=== PATIENT | female | born 1970 | race Caucasian/White ===

== ENCOUNTER 2020-10-03 15:24 | Outpatient (CLI) | payer BC, SELFPAY ==
--- NOTE | ~2020-10-03 | MM_ITS ---
EXAMINATION: MM screening [facility] BI w anish HISTORY: Screening mammogram TECHNIQUE: Craniocaudal and mediolateral oblique 3-D tomosynthesis images were obtained and synthetic 2-D images were generated. CAD analysis was submitted and interpreted. COMPARISON: 09/05/2019, 07/27/2018, 04/27/2017 BREAST PARENCHYMAL COMPOSITION: The breasts are heterogeneously dense, which may obscure small masses . FINDINGS: RIGHT BREAST: There is no evidence of suspicious mass, calcification, or architectural distortion to suggest malignancy. There has been no significant interval change. LEFT BREAST: There is low-density mass in the far posterior third of the slightly inner breast best a ppreciated 8 cm from the nipple on craniocaudal tomosynthesis image 14/86. IMPRESSION: 1. Left breast mass. 2. Additional mammographic views and possible breast ultrasound are recommended. BI-RADS Category 0: Incomplete: Needs additional imaging evaluation. Reviewed, dictated and finalized at location A. RVISOR TYPE DISK QUALITY CONTROL IMPRESSION: 1. Left breast mass. 2. Additional mammographic views and possible breast ultrasound are recommended . BI-RADS Category 0: Incomplete: Needs additional imaging evaluation.
== END 2020-10-03 15:25 | disposition home or self-care (01) ==
LOC: ANHIMG 15:27
DX: Z12.31 Encounter for screening mammogram for malignant neoplasm of breast (principal); R92.8 Other abnormal and inconclusive findings on diagnostic imaging of breast
CPT/HCPCS: 77063; 77067

== ENCOUNTER 2020-10-23 11:23 | Outpatient (CLI) | payer BC, SELFPAY ==
--- NOTE | ~2020-10-23 | MM_ITS ---
EXAMINATION: MM diagnostic mammo unilat LT HISTORY: Left breast mass on screening mammogram TECHNIQUE: Additional 3-D tomosynthesis images of the left breast were performed and synthetic 2-D im ages were generated. CAD analysis was submitted and interpreted. COMPARISON: 10/03/2020, 09/05/2019, 07/27/2018, 04/27/2017 FINDINGS: No persistent mass is identified with spot compression views of the left breast. There is n o suspicious calcification or architectural distortion. IMPRESSION: 1. No mammographic evidence of malignancy. 2. Recommend routine screening mammography in one year. BI-RADS Category 1: Negative Reviewed, dictated and finalized at location A. STOS BRAKE LINING FINISHER
== END 2020-10-23 11:24 | disposition home or self-care (01) ==
LOC: ANHIMG 11:28
DX: R92.8 Other abnormal and inconclusive findings on diagnostic imaging of breast (principal)
CPT/HCPCS: 77065

== ENCOUNTER 2021-11-27 14:30 | Outpatient (CLI) | payer BC, SELFPAY ==
--- NOTE | ~2021-11-27 | MM_ITS ---
EXAMINATION: MM screening [facility] BI w anish HISTORY: Screening mammogram TECHNIQUE: Craniocaudal and mediolateral oblique 3-D tomosynthesis images were obtained and synthetic 2-D images were generated. CAD analysis was submitted and interpreted. COMPARISON: 10/23/2020, 10/03/2020, 09/05/2019 BREAST PARENCHYMAL COMPOSITION: The breasts are heterogeneously dense, which may obscure small masses . FINDINGS: There is no evidence of suspicious mass, calcification, or architectural distortion to sugg est malignancy in either breast. There has been no suspicious interval change. IMPRESSION: 1. No mammographic evidence of malignancy. 2. Recommend routine screening mammography in one year. BI-RADS Category 1: Negative Reviewed, dictated and finalized at location A. INE ENGINEER
== END 2021-11-27 14:31 | disposition home or self-care (01) ==
LOC: ANHIMG 14:35
PROVIDERS: Visit Provider Family Medicine
DX: Z12.31 Encounter for screening mammogram for malignant neoplasm of breast (principal)
CPT/HCPCS: 77063; 77067

== ENCOUNTER 2022-12-20 12:27 | Outpatient (CLI) | payer BC, SELFPAY ==
--- NOTE | ~2022-12-20 | XR_ITS ---
EXAMINATION: XR hip RT 2V w AP pelvis DATE: 12/20/2022 14:11 INDICATION: Right hip pain. TECHNIQUE: An anteroposterior view of the pelvis and 2 views of right hip were obtained. COMPARISON: None. FINDINGS: Bone alignment is normal. No fracture. There is mild osteoarthritis of the hips. IMPRESSION: 1. Mild osteoarthritis of the hips. Reviewed, dictated and finalized at location A. T INSTALLER
== END 2022-12-20 12:28 | disposition home or self-care (01) ==
PROVIDERS: PCP Family Medicine; Visit Provider Family Medicine
DX: M25.551 Pain in right hip (principal); M16.0 Bilateral primary osteoarthritis of hip
CPT/HCPCS: 73502

== ENCOUNTER 2022-12-23 14:50 | Outpatient (CLI) | payer BC, SELFPAY ==
[2022-12-23 15:39] LABS: Appearance Urine Clear (Clear); Bilirubin Urine Negative (Negative); Blood Urine 3+ (Negative); Color Urine Light Yellow (Yellow); Glucose Urine UA 3+ (Negative); Ketones Urine Negative (Negative); Leukocyte Esterase Ur Trace LEU/UL (Negative); Nitrate Urine Positive (Negative); Protein Urine Negative (Negative); Specific Grav Ur 1.025 (1.010-1.020); Urobilinogen Urine 0.2 mg/dL (0.2-1.0)
[2022-12-23 16:09] LABS: Add Urine Microscopic? YES; RBC Urine >100 /hpf (0-2)
[2022-12-23 16:10] LABS: Bacteria Urine 2+ /hpf; Squamous Epithelial Cell Urine Few /hpf (Few)
== END 2022-12-23 14:51 | disposition home or self-care (01) ==
LOC: CHSLAB 14:52
PROVIDERS: PCP Family Medicine; Visit Provider Family Medicine
DX: N39.0 Urinary tract infection, site not specified (principal)
CPT/HCPCS: 81001; 87077; 87086; 87088; 87186

== ENCOUNTER 2023-01-07 10:30 | Outpatient (CLI) | payer BC, SELFPAY ==
[2023-01-07 10:40] LABS: Appearance Urine Slightly Cloudy (Clear); Bilirubin Urine Negative (Negative); Blood Urine Negative (Negative); Color Urine Light Yellow (Yellow); Glucose Urine UA Negative (Negative); Ketones Urine Trace (Negative); Leukocyte Esterase Ur 2+ LEU/UL (Negative); Nitrate Urine Negative (Negative); Protein Urine Negative (Negative); Specific Grav Ur 1.015 (1.010-1.020); pH Urine 6.5 (5.0-8.0)
[2023-01-07 10:45] LABS: Add Urine Microscopic? YES; RBC Urine None seen /hpf (0-2); Squamous Epithelial Cell Urine Few /hpf (Few); WBC Urine 16-20 /hpf (0-3)
[2023-01-07 10:46] LABS: Bacteria Urine Trace /hpf
== END 2023-01-07 10:31 | disposition home or self-care (01) ==
LOC: CHSLAB 10:32
PROVIDERS: PCP Family Medicine; Visit Provider Family Medicine
DX: R30.9 Painful micturition, unspecified (principal); R82.90 Unspecified abnormal findings in urine
CPT/HCPCS: 81001; 87077; 87086; 87088; 87186

== ENCOUNTER 2023-02-21 09:47 | Outpatient (CLI) | payer BC, SELFPAY ==
[2023-02-21 09:58] LABS: Appearance Urine Clear (Clear); Bilirubin Urine Negative (Negative); Blood Urine Negative (Negative); Color Urine Light Yellow (Yellow); Glucose Urine UA 3+ (Negative); Ketones Urine Trace (Negative); Leukocyte Esterase Ur 1+ (Negative); Nitrate Urine Negative (Negative); Protein Urine Negative (Negative); Specific Grav Ur 1.015 (1.010-1.020); pH Urine 6.5 (5.0-8.0)
[2023-02-21 10:06] LABS: Add Urine Microscopic? YES
[2023-02-21 10:07] LABS: Bacteria Urine Trace /hpf; RBC Urine None seen /hpf (0-2); Squamous Epithelial Cell Urine Few /hpf (Few)
== END 2023-02-21 09:48 | disposition home or self-care (01) ==
LOC: CHSLAB 09:49
PROVIDERS: PCP Family Medicine; Visit Provider Family Medicine
DX: N39.0 Urinary tract infection, site not specified (principal); R82.90 Unspecified abnormal findings in urine
CPT/HCPCS: 81001; 87086; 87088

== ENCOUNTER 2023-03-07 10:52 | Outpatient (CLI) | payer BC, SELFPAY ==
--- NOTE | ~2023-03-07 | CT_ITS ---
EXAMINATION: CT abdomen pelvis w con DATE: 03/07/2023 12:33 INDICATION: Right flank pain. TECHNIQUE: Computed tomography (CT) of the abdomen and pelvis was performed with 100 mL Omnipaque 350 intravenous contrast. Automated exposure control and iterative reconstruction technique were employe d. The dose-length product was 313.57 mGy-cm. COMPARISON: None. FINDINGS: The visualized portions of the lung bases demonstrate mild atelectasis. No pleural effusion . The heart size is normal. No pericardial effusion. The liver, gallbladder, spleen, pancreas, and ad renal glands are normal. There is cortical thinning of right kidney. There are cysts in left kidney m easuring up to 5 mm. There is a 4 mm stone in left kidney. The stomach is distended and filled with f ood. There are no dilated loops of bowel. The appendix is not visualized. There are no pathologically enlarged lymph nodes. There is no free intraperitoneal fluid. There is mild lumbar spondylosis. IMPRESSION: 1. No specific etiology for the patient's symptoms. Reviewed, dictated and finalized at location A.
[2023-03-07 12:11] LABS: Estimated Glomerular Filt Rate > 60
== END 2023-03-07 10:53 | disposition home or self-care (01) ==
PROVIDERS: PCP Family Medicine; Visit Provider Family Medicine
DX: R10.9 Unspecified abdominal pain (principal)
CPT/HCPCS: 74177; Q9967

== ENCOUNTER 2023-05-16 14:11 | Outpatient (CLI) | payer BC, SELFPAY ==
[2023-05-16 14:47] LABS: Appearance Urine Clear (Clear); Bilirubin Urine Negative (Negative); Blood Urine Negative (Negative); Color Urine Yellow (Yellow); Glucose Urine UA Trace (Negative); Ketones Urine Negative (Negative); Leukocyte Esterase Ur Negative LEU/UL (Negative); Nitrate Urine Negative (Negative); Protein Urine Negative (Negative); Specific Grav Ur >= 1.030 (1.010-1.020)
[2023-05-16 15:05] LABS: Add Urine Microscopic? NO
== END 2023-05-16 14:12 | disposition home or self-care (01) ==
LOC: CHSLAB 14:13
PROVIDERS: PCP Family Medicine; Visit Provider Family Medicine
DX: N39.0 Urinary tract infection, site not specified (principal)
CPT/HCPCS: 81003

== ENCOUNTER 2023-06-15 07:28 | Outpatient (CLI) | payer BC, SELFPAY ==
--- NOTE | ~2023-06-15 | MM_ITS ---
EXAMINATION: MM screening [facility] BI w anish HISTORY: Screening mammogram TECHNIQUE: Craniocaudal and mediolateral oblique 3-D tomosynthesis images were obtained and synthetic 2-D images were generated. CAD analysis was submitted and interpreted. COMPARISON: 11/27/2021, 10/03/2020 BREAST PARENCHYMAL COMPOSITION:The breasts are extremely dense, which lowers the sensitivity of mammo graphy. FINDINGS: No suspicious mass, calcification, or architectural distortion are identified in either venancio ast to suggest malignancy. There has been no suspicious interval change. IMPRESSION: No mammographic evidence of malignancy. Recommend routine screening mammography in one year. BI-RADS Category 1: Negative Reviewed, dictated and finalized at location M.
== END 2023-06-15 07:29 | disposition home or self-care (01) ==
LOC: CHSIMG 07:29
PROVIDERS: PCP Family Medicine; Visit Provider Obstetrics & Gynecology
DX: Z12.31 Encounter for screening mammogram for malignant neoplasm of breast (principal)
CPT/HCPCS: 77063; 77067

== ENCOUNTER 2023-07-11 16:13 | Outpatient (RCR) | payer BC, SELFPAY ==
--- NOTE | 2023-07-11 17:01 | OPREHPOC ---
Outpatient Therapy Plan of Care This is a Multidisciplinary Plan of Care that may contain components documented by all disciplines (PT, OT, and ST.) PT Problem 1 PT Problem #1 Knowledge Deficit PT Goal 1 Goal Patient to demonstrate independence with HEP Target Visit 5 PT Problem 2 PT Problem #2 Pain PT Goal 1 Goal 1. Patient to report highest pain at 2/10 2. Patient to report ability to sleep through the night with no disturbance due to pain Target Visit 10 PT Problem 3 PT Problem #3 Impaired Strength PT Goal 1 Goal Patient to demonstrate 5/5 strength of R hip to return to stair navigation at PLOF Target Visit 10 PT Problem 4 PT Problem #4 Impaired Flexibility PT Goal 1 Goal Patient to demonstrate no restriction of the R hip flexor to return to sitting for prolonged periods of time Target Visit 10
--- NOTE | 2023-07-11 17:01 | PTOPEVAL1 ---
Assessment and note entered by Kaylynn Toney DPT Evaluation Information Assessment Status Evaluation Diagnosis R hip pain, R leg pain Onset 06/22/23 Subjective Information Patient reports in July of 2022 she had a is Patient reports pain is at the groin and wraps to the hip joint. Patient has difficulty with stairs, running, walking and sitting for prolonged periods. She has been taking meloxicam and has noticed pain decreasing with taking. Reported Pain Level Pain Score 3: Self Report Assessment PT Clinical Summary Patient is a 52 year old female who presents to PT with R sided hip and groin pain. Patient demonstrates decreased R hip flexor length, decreased R hip strength and tenderness to the R piriformis and glute impairing her ability to sit for long periods of time, navigate stairs and complete house hold tasks. Patient would benefit from skilled PT to address impairments and return to PLOF. Plan of Care Interventions Electrical Stimulation,Gait Training,Hot Pack/Cold Pack,Manual Therapy,Mechanical Traction,Neuro Re- education,Patient/Caregiver Educati,Therapeutic Activities,Therapeutic Exercise PT Services Indicated Yes Treatment Frequency and 2x weekly for 10 visits Duration These treatments will address the objective and functional deficits as defined above. The patient will be advanced safely and appropriately in order for the patient to progress towards his/her prior level of function. Additional exercises will be introduced and as well as a comprehensive home exercise program upon discharge, if needed, ?to ensure carryover of functional gains achieved in the clinic. This treatment plan has been reviewed and agreement upon by the patient.
--- NOTE | 2023-10-13 17:18 | PCPTNOTE ---
patient discharged due completion of current program
== END 2023-08-11 23:59 | disposition home or self-care (01) ==
LOC: CHSPT 16:13
PROVIDERS: Visit Provider Physical Medicine & Rehabilitation
DX: M25.551 Pain in right hip (principal); G89.29 Other chronic pain; M25.851 Other specified joint disorders, right hip
CPT/HCPCS: 97014; 97110; 97140; 97161; G0283

== ENCOUNTER 2023-10-05 14:19 | Outpatient (CLI) | payer BC, SELFPAY ==
--- NOTE | ~2023-10-05 | XR_ITS ---
EXAMINATION: XR hand BI arthritis min 3V DATE: 10/05/2023 14:44 INDICATION: Bilateral hand pain. TECHNIQUE: 4 views of right hand and 4 views of left hand on a total of 7 radiographs were obtained. COMPARISON: None. FINDINGS: RIGHT HAND: Bone alignment is normal. No fracture. There is mild osteoarthritis of fifth proximal int erphalangeal joint. LEFT HAND: Bone alignment is normal. No fracture. There is mild osteoarthritis of first carpometacarp al joint and first interphalangeal joint. IMPRESSION: 1. Mild polyarticular osteoarthritis. Reviewed, dictated and finalized at location E. [employer] TRAINING MANAGER
== END 2023-10-05 14:20 | disposition home or self-care (01) ==
LOC: CHSIMG 14:22
PROVIDERS: PCP Family Medicine; Visit Provider Family Medicine
DX: M19.042 Primary osteoarthritis, left hand (principal); M19.041 Primary osteoarthritis, right hand
CPT/HCPCS: 73130

== ENCOUNTER 2023-10-07 12:17 | Outpatient (CLI) | payer BC, SELFPAY ==
--- NOTE | ~2023-10-07 | XR_ITS ---
XR wrist LT min 3V DATE: 10/07/2023 14:21 INDICATION: Chronic pain and swelling of left wrist TECHNIQUE: 4 views COMPARISON: None FINDINGS: No fracture or dislocation, periosteal reaction or bone destruction. No erosive change or c hondrocalcinosis. Joint spaces appear well preserved. IMPRESSION: Negative Reviewed, dictated and finalized at location A. [employer] IMPRESSION: Negative
--- NOTE | ~2023-10-07 | XR_ITS ---
XR wrist RT min 3V DATE: 10/07/2023 14:21 INDICATION: Chronic pain and swelling of right wrist TECHNIQUE: 4 views COMPARISON: None FINDINGS: No fracture or dislocation, periosteal reaction or bone destruction, erosive change or marilyn drocalcinosis. Joint spaces are well preserved. IMPRESSION: Negative Reviewed, dictated and finalized at location A. ATION COORDINATOR IMPRESSION: Negative
== END 2023-10-07 12:18 | disposition home or self-care (01) ==
LOC: CHSLAB 12:20
PROVIDERS: PCP Family Medicine; Visit Provider Family Medicine
DX: M25.532 Pain in left wrist (principal); M25.531 Pain in right wrist
CPT/HCPCS: 73110

== ENCOUNTER 2023-12-28 10:39 | Outpatient (CLI) | payer BC, SELFPAY ==
--- NOTE | ~2023-12-28 | XR_ITS ---
Left Shoulder Technique: AP and scapular Y views were obtained. Clinical History: Pain Findings: No fracture or dislocation is seen. Osseous alignment is anatomic. The glenohumeral and acr omioclavicular joint spaces are preserved. Soft tissues are unremarkable. Impression: Unremarkable left shoulder radiographs. Reviewed, dictated and finalized at [facility]. Impression: Unremarkable left shoulder radiographs.
== END 2023-12-28 10:40 | disposition home or self-care (01) ==
LOC: CHSIMG 10:41
PROVIDERS: PCP Family Medicine; Visit Provider Family Medicine
DX: M25.512 Pain in left shoulder (principal)
CPT/HCPCS: 73030

== ENCOUNTER 2024-03-02 11:11 | Outpatient (RCR) | payer BC, SELFPAY ==
--- NOTE | 2024-03-02 11:57 | OPREHPOC ---
Outpatient Therapy Plan of Care This is a Multidisciplinary Plan of Care that may contain components documented by all disciplines (PT, OT, and ST.) PT Problem 1 PT Problem #1 Knowledge Deficit PT Goal 1 Goal 1. patient to display knowledge of home valentina maneuver and sleeping position. Target Visit 1 Progress Met
--- NOTE | 2024-03-02 11:57 | PTOPEVDC ---
Assessment and note entered by JT File, PT Thank you for referring Zayda James to [facility].? An evaluation has been completed. No further treatment is needed. Evaluation Information Assessment Status Evaluation Diagnosis BPPV R ear Onset 02/22/24 Subjective Information patient reports she has been having vertigo symptoms off and on for the past 9 days. she reports she gets it the most when she lays down. she reports the room will spin and last for about 30-45 seconds. she reports when she is up she does have a bit of light headedness. she reports she has had vertigo type symptoms in the past, but reports they were more related to migraines and had other symptoms that correlated with migraines. she reports her symptoms now are different. she reports she was prescribed meclizine. she reports she took it last night, but reports she has not been consistent with taking it. she reports her symptoms are worse to the R side. Reported Pain Level Pain Score 3: Self Report Assessment PT Clinical Summary mrs. james presents to skilled PT for evaluation and treatment of BPPV symptoms on the R side. she describes symptoms that are indicative of BPPV. however, today, she has more lightheadedness and no nystagmus of the eyes. she was educated in the home Melinda and sleeping position protocol. she will perform this at home, and follow up as needed . she was educated to return to the MD if her symptoms persist longer than the end of next week. Plan of Care Interventions Patient/Caregiver Educati,Therapeutic Activities, Therapeutic Exercise PT Services Indicated No Treatment Frequency and DC to independent HEP. follow up with MD in 1 week Duration if symptoms persist.
== END 2024-03-02 14:00 | disposition home or self-care (01) ==
LOC: CHSPT 11:11
PROVIDERS: Visit Provider Family Medicine
DX: H81.11 Benign paroxysmal vertigo, right ear (principal)
CPT/HCPCS: 95992; 97161

== ENCOUNTER 2024-09-18 12:49 | Outpatient (CLI) | payer BC, SELFPAY ==
--- NOTE | ~2024-09-18 | CT_ITS ---
CT Scan of the Chest without Contrast: Clinical Indication: Lung cancer screening, nicotine dependence Technique: Contiguous sections were acquired throughout the chest without intravenous contrast. Dose reduction technique was used on this scan by utilizing automated exposure control and iterative recon struction technique. The dose-length product (DLP) was 70.25 mGy-cm. Findings: There is no evidence of any significant mediastinal, hilar or axillary lymphadenopathy. The mediastin al soft tissues appear normal. There is no evidence of pleural or pericardial effusion. The lungs are clear. No pulmonary nodules or infiltrates are noted. Images through the upper abdomen reveal no abnormalities. Impression: Lung RADS 1: Negative. 12 month follow-up screening CT advised. Reviewed, dictated and finalized at location . LRY BENCH WORKER Impression: Lung RADS 1: Negative. 12 month follow-up screening CT advised.
== END 2024-09-18 12:50 | disposition home or self-care (01) ==
PROVIDERS: PCP Family Medicine; Visit Provider Family Medicine
DX: Z12.2 Encounter for screening for malignant neoplasm of respiratory organs (principal); Z87.891 Personal history of nicotine dependence
CPT/HCPCS: 71271

== ENCOUNTER 2025-09-18 08:03 | Outpatient (CLI) | payer BC, SELFPAY ==
--- OUTSIDE RECORDS SUMMARY | 2016-01-27 04:00 | XMS_ITS | Continuity of Care Document ---
Author Organization [facility] Address [address] [place] [address] Phone Care Team Providers Care Couture Dressmaker Name Role Phone Marie Warren Unavailable Unavailable Allergies, Adverse Reactions, Alerts Substance Reaction Status Criticality clarithromycin GI Problems Active No Informatio n Medications Medication Instructions Dosage Effective Dates (start - stop) Status Comments Dymista 137 mcg-50 mcg/spray nasal spray 1 spray by intranasal route 2 times every day in each nostril - Active MEMBER: MARGARET, GROUP: [id number], RxBIN: [id number], Topamax 25 mg Tab take 4 Tablet (100MG) by oral route every day in the morning and evening 100 MG - Active HUMALOG (unknown strength) Not Available - Active spironolactone 50 mg Tab take 1 tablet (50MG) by oral route every 12 hours 50 MG - Active insulin pump cartridge SubQ - Active Advance Directives Directive Yes / No Effective Date File Name No Information Encounters Encounter Description Practice Location Reason(s) For Visit Diagnoses Date Provider Providers Copied on Encounter [facility], [address], [place], [place], [id number] , [place] tel: [phone] [facility] Other allergic rhinitis 6 Jose Salazar . [address] [facility], [address] [address], [place], [place], [id number] , [place]. tel: [phone] Referring Provider: Marvin Louis, [address] [place] [address], [address] . tel:[phone] [facility], [address], [place], [place], [id number] , tel: [phone] [facility] Other allergic rhinitis 0 6 Heriberto Wong. [address] [place] [address], [id number] , . tel: [phone] Referring Provider: Marvin Louis, [address] [place] [address], [address] . tel:[phone] [facility], [address], [place], [place], [id number] , [place] tel: [phone] [facility] Other allergic rhinitis 6 Heriberto Wong. [address] [place] [address], [id number] , . tel: [phone] Referring Provider: Marvin Louis, [address] [place] [address], [address] . tel:[phone] [facility], [address], [place], [place], [id number] , tel: [phone] [facility] Other allergic rhinitis 6 Jose Salazar . [address] [place] [address], [id number] , . tel: [phone] Referring Provider: Marvin Louis, [address] [place] [address], [address] . tel:[phone] [facility], [address], [place], [address] , [place] tel: [phone] [facility] Other allergic rhinitis 5 Jose Salazar . [address] [place] [address], [id number] , . tel: [phone] Referring Provider: Marvin Louis, [address] [place] [address], [address] . tel:[phone] [facility], [address] [place] [address], [id number] , tel: [phone] [facility] Other allergic rhinitis Erwinabraham SextonMarie . [address] [place] [address], [id number] , . tel: [phone] Referring Provider: Marvin Louis, [address] [place] [address], [address] . tel:[phone] [facility], [id number] [place] [address], [id number] , tel: [phone] [facility] Other allergic rhinitis 5 Heriberto Wong. [address] [place] [address], [id number] , . tel: [phone] Referring Provider: Madan rosario, [address] [place] [address] [address] , [place], [address]. tel:[phone] [facility], [address] [place] [address], [id number] , tel: [phone] [facility] Allergic rhinitis due to other allergen Jun- Erwinabraham SextonMarie . [address] [place] [address], [id number] , . tel: [phone] Referring Provider: Marvin Louis, [address] [place] [address], [address] . tel:[phone] [facility], [address] [place] [address], [id number] , tel: [phone] [facility] Allergic rhinitis due to other allergen Aug- 0 5 Heriberto Wong. [address] [place] [address], [id number] , . tel: [phone] Referring Provider: Marvin Louis, [address] [place] [address], [address] . tel:[phone] [facility], [address] [place] [address], [id number] , tel: [phone] [facility] Allergic rhinitis due to other allergen Benjamin-2 3- 5 Heriberto Wong. [address] [place] [address], [id number] , . tel: [phone] Referring Provider: Marvin Louis, [address] [place] [address], [address] . tel:[phone] [facility], [address], [place], [place], [address] , tel: [phone] [facility] Allergic rhinitis due to other allergen Maximiliano-1 - 5 Heriberto Wong. [address] [place] [address], [id number] , . tel: [phone] Referring Provider: Marvin Louis, [address] [place] [address], [address] . tel:[phone] [facility], [address], [place], [place], [address] , tel: [phone] [facility] Allergic rhinitis due to other allergen May-1 - 5 Jose Salazar . [address] [place] [address], [id number] , . tel: [phone] Referring Provider: Marvin Louis, [address] [place] [address], [address] . tel:[phone] [facility], [address], [place], [place], [address] , tel: [phone] [facility] Allergic rhinitis due to other allergen Mar-2 6- 5 Heriberto Wong. [address] [place] [address], [id number] , . tel: [phone] Referring Provider: Marvin Louis, [address] [place] [address], [address] . tel:[phone] [facility], [address], [place], [place], [address] , tel: [phone] [facility] Allergic rhinitis due to other allergen Feb-2 5-201 5 Shine Amrie . [address] [place] [address], [id number] , . tel:[phone] Referring Provider: Marvin Louis, [address] [place] [address], [address] . tel:[phone] [facility], [address], [place], [place], [address] , [place] tel: [phone] [facility] Allergic rhinitis due to other allergen German-2 1-201 5 Jose Sextonine . [address] [place] [address], [id number] , [place]. tel: [phone] Referring Provider: Marvin Louis, [address] [place] [address], [address] . tel:[phone] [facility], [address], [place], [place], [id number] , [place] tel: [phone] [facility] Allergic rhinitis due to other allergen Dec-2 3-201 4 Jose Sextonine . [address] [place] [address], [id number] , [place]. tel:[phone] Referring Provider: Marvin Louis, [address] [place] [address], [address] . tel:[phone] [facility], [address], [place], [place], [address] , [place] tel: [phone] [facility] Allergic rhinitis due to other allergen Oct-3 0-201 4 Heriberto Wong. [address] [place] [address], [id number] , [place]. tel: [phone] Referring Provider: Marvin Louis, [address] [place] [address], [address] . tel:[phone] [facility], [address], [place], [place], [id number] , [place] tel: [phone] [facility] Allergic rhinitis due to other allergen Oct-1 6-201 4 Heriberto Wong. [address] [place] [address], [place], [id number] , . tel: [phone] Referring Provider: Madan rosario, [address] [place] [address], [place], [address]. tel:[phone] [facility], [address], [place], [place], [address] , tel: [phone] [facility] Allergic rhinitis due to other allergen Oct-0 2-201 4 Heriberto Wong. [address] [place] [address], [id number] , . tel: [phone] Referring Provider: Marvin Louis, [address] [place] [address], [address] . tel:[phone] [facility], [address], [place], [address] , tel: [phone] [facility] Allergic rhinitis due to other allergen Sep-0 4-201 4 Heriberto Wong. [address] [place] [address], [id number] , . tel: [phone] Referring Provider: Marvin Louis, [address] [place] [address], [address] . tel:[phone] [facility], [address], [place], [address] , tel: [phone] [facility] Allergic rhinitis due to other allergen Aug-0 7-201 4 Heriberto Wong. [address] [place] [address], [id number] , [place]. tel: [phone] Referring Provider: Marvin Louis, [address] [place] [address], [address] . tel:[phone] [facility], [address] [place] [address], [id number] , tel: [phone] [facility] Allergic rhinitis due to other allergen Benjamin-0 8-201 4 Heriberto Wong. [address] [place] [address], [id number] , . tel: [phone] Referring Provider: Marvin Louis, [address] [place] [address], [address] . tel:[phone] [facility], [address], [place], [place], [address] , tel: [phone] [facility] Allergic rhinitis due to other allergen Maximiliano-1 2-201 4 Heriberto Wong. [address] [place] [address], [address], [id number] , . tel: [phone] Referring Provider: Marvin Louis, [address] [place] [address], [address] . tel:[phone] [facility], [address], [place], [place], [address] , tel: [phone] [facility] Allergic rhinitis due to other allergen May-1 5-201 4 Heriberto Wong. [address] [place] [address], [id number] , . tel: [phone] Referring Provider: Marvin Louis, [address] [place] [address], [address] . tel:[phone] [facility], [address], [place], [place], [address] , tel: [phone] [facility] Allergic rhinitis due to other allergen Apr-1 6-201 4 Heriberto Wong. [address] [place] [address], [address], [id number] , . tel: [phone] Referring Provider: Marvin Louis, [address] [place] [address], [address] . tel:[phone] [facility], [address], [place], [place], [address] , tel: [phone] [facility] Allergic rhinitis due to other allergen Mar-2 0-201 4 Heriberto Wong. [address] [place] [address], [address], [id number] , . tel: [phone] Referring Provider: Marvin Louis, [address] [place] [address], [address] . tel:[phone] [facility], [address], [place], [place], [address] , tel: [phone] [facility] Allergic rhinitis due to other allergen Feb-2 0 4 Heriberto Wong. [address] [place] [address], [id number] , . tel: [phone] Referring Provider: Marvin Louis, [address] [place] [address], [address] . tel:[phone] [facility], [address], [place], [place], [address] , [place] tel: [phone] [facility] Allergic rhinitis due to other allergen Oct- 4 Heriberto Wong. [address] [place] [address], [id number] , . tel: [phone] Referring Provider: Marvin Louis, [address] [place] [address], [address] [place] [address] . tel:[phone] [facility], [address], [place], [place], [address] , tel: [phone] [facility] Allergic rhinitis due to other allergen Sep- 3 Heriberto Wong. [address] [place] [address], [id number] , . tel: [phone] Referring Provider: Marvin Louis, [address] [place] [address], [address] [place] [address] . tel:[phone] [facility], [address], [place], [place], [address] , [place] tel: [phone] [facility] Allergic rhinitis due to other allergen Jul- 3 Heriberto Wong. [address] [place] [address], [id number] , . tel: [phone] Referring Provider: Madan rosario, [address] [place] [address] , [place], [address]. tel:[phone] [facility], [address], [place], [address] , tel: [phone] [facility] Allergic rhinitis due to other allergen Oct-2 2 Heriberto Wong. [address] [place] [address], [id number] , . tel: [phone] Referring Provider: Madan rosario, [address], [place], [address]. tel:[phone] [facility], [address], [place], [place], [address] , tel: [phone] [facility] Allergic rhinitis due to other allergen German-2 2 Heriberto Wong. [address] [place] [address], [id number] , . tel: [phone] Referring Provider: Madan rosario, [address], [place], [address]. tel:[phone] [facility], [address], [place], [place], [address] , tel: [phone] [facility] No Information Aug-0 1 Heriberto Wong. [address] [place] [address], [id number] , . tel: [phone] [facility], [address], [place], [place], [address] , tel: [phone] [facility] Allergic rhinitis due to other allergen Maximiliano-1 1 Heriberto Wong. [address] [place] [address], [id number] , . tel: [phone] Referring Provider: Marvin Louis, [address] [place] [address], [address] . tel:[phone] [facility], [address], [place], [place], [address] , tel: [phone] [facility] Allergic rhinitis due to other allergen Maximiliano-0 1 Heriberto Wong. [address] [place] [address], [id number] , . tel: [phone] Referring Provider: Marvin Louis, [address] [place] [address], [address] . tel:[phone] [facility] [address], [place], [address] , tel: [phone] [facility] Allergic rhinitis due to other allergen Maximiliano-0 1 Heriberto Wong. [address] [place] [address], [address], [id number] , . tel: [phone] Referring Provider: Marvin Louis, [address] [place] [address], [address] . tel:[phone] [facility] [address], [place], [place], [address] , tel: [phone] [facility] Allergic rhinitis due to other allergen February-2 1 Heriberto Wong. [address] [place] [address], [id number] , . tel: [phone] Referring Provider: Marvin Louis, [address] [place] [address], [address] . tel:[phone] [facility] [address], [place], [place], [address] , tel: [phone] [facility] Allergic rhinitis due to other allergen February-1 1 Heriberto Wong. [address] [place] [address], [id number] , . tel: [phone] Referring Provider: Marvin Louis, [address] [place] [address], [address] . tel:[phone] [facility] [address] [place] [address], [id number] , tel: [phone] [facility] Allergic rhinitis due to other allergen February-1 1 Heriberto Wong. [address] [place] [address], [id number] , . tel: [phone] Referring Provider: Madan rosario [address], [place], [address]. tel:[phone] [facility], [address], [place], [place], [address] , tel: [phone] [facility] Allergic rhinitis due to other allergenUnspecified sinusitis (chronic) [address] [place] [address], [id number] , . tel: [phone] Referring Provider: Marvin Louis, [address] [place] [address], [address] . tel:[phone] [facility], [address], [place], [place], [address] , tel: [phone] [facility] Allergic rhinitis due to other allergenTobacco use disorderUnspecified sinusitis (chronic)Other and unspecified chronic thyroiditisCommon migraine with intractable migraine, so statedDM Type 1, ControlledTobacco use disorder 1 Heriberto Wong. [address] [place] [address], [id number] , . tel: [phone] Referring Provider: Madan rosario, [address], [address]. tel:[phone] Family History Family Member Type Diagnosis Age At Onset No Information Payers Payer name Insurance type Covered constitution party ID Authorjaya tiwilliams(s) [facility] [id number] Social History Type Description Quantity Date Captured Comments Alcohol Use Details Unknown Caffeine Use Details Unknown Tobacco Use Status Smoking Status Current every day smoker 2015 Sex Female Vital Signs Date / Time: Height Weight BMI Pulse Rate Blood Pressure Temperature Respiratory Rate Body Surface Area Head Circumference Head Circ. Percentile Wt./Salo. Percentile BMI percentile Pulse Ox Inhaled Ox 11:46 AM 61.00 in 52.617 kg (116.00 lbs) 21.9 2 kg/m eter (2) 81 /min 87/56 mm[Hg] Chief Complaint And Reason For Visit No Information Reason For Referral Reason For Referral No Information History Of Present Illness Encounter Date Complaint History Of Prese nt Illness No Information Functional Status Date Functional Assessmen t No Information Medications Administered Medication Instructions Dosage Effective Dates (start - stop) Status Comments No Drug Therapy Prescribed Instructions Date Instruction Additional Infor mation No Information Assessments Type Assessment Date No Information Patient Care Teams Name Effective Dates (start - stop) Status Members No Information
--- NOTE | ~2025-09-18 | CT_ITS ---
EXAMINATION:CT lung screening DATE: 09/18/2025 08:21 INDICATION: Personal history of nicotine dependence. TECHNIQUE: Computed tomography (CT) of the chest was performed without intravenous contrast. Automated exposure control and iterative reconstruction technique were employed. The dose-length product (DLP) was 60.00 mGy-cm. COMPARISON: Chest CT 09/18/2024 FINDINGS: There is mild emphysema. There is a 3 mm nodule in right upper lobe. There is mild atelectasis bilaterally. No pleural effusion. The heart size is normal. There are coronary artery calcifications. No pericardial effusion. There is mild thoracic spondylosis. IMPRESSION: 1. Lung-RADS category 2: Benign appearance or behavior. Continue annual screening with noncontrast low-dose chest CT in 12 months. Reviewed, dictated and finalized at location E. BUILDER HELPER IMPRESSION: 1. Lung-RADS category 2: Benign appearance or behavior. Continue annual screeni ng with noncontrast low-dose chest CT in 12 months.
--- OUTSIDE RECORDS SUMMARY | 2025-09-18 08:14 | XMS_ITS | Clinical Summary ---
Author Organization [facility] Care Team Providers Care Craps Manager Name Role Phone Unavailable Primary Care Provider Unavailabl e Social History Tobacco Use Types Packs/Day Years Used Date Smoking Tobacco: Never Assessed Comments Unknown Sex and Gender Information Value Date Recorded Sex Assigned at Not on file Legal Sex Female 10:41 AM CDT Gender Identity Not on file Sexual Orientation Not on file Plan of Treatment Health Maintenance Due Date Last Done Comments Hepatitis C Virus (HCV) Screening 1972 TdaP Immunization 1972 Hepatitis B Immunization (1 of 3 - 19+ 3-dose series) 1991 Pap Smear 1993 Cervical Cancer Screening (CCS) 2002 HPV/Cotest 2002 Cologuard 2017 Colonoscopy 2017 Colorectal Cancer Screening 2017 Immunochemical Fecal Occult Blood 2017 Pneumococcal Immunization (5 0+ years) (1 of 1 - PCV) 2022 Zoster Immunization (1 of 2) 2022 Influenza Immunization (#1) 06/17/2025/0 04/2020, 07/15/2019, 07/29/2017 SARS-COV-2 Immunization ( season) 2025 Respiratory Syncytial Virus (RSV) Immunization (Adult) (1 - 1-dose 75+ series) 2047 Human Papillomavirus (HPV) Immunization Aged Out No longer eligible b ased on patient's age to complete this topic Meningococcal Immunization (ACWY) Aged Out No longer eligible b ased on patient's age to complete this topic Rotavirus Immunization Aged Out No lo nger eligible based on patient's age to complete this topic
--- OUTSIDE RECORDS SUMMARY | 2025-09-18 08:14 | XMS_ITS | Clinical Summary ---
Author Organization [facility] Address [address] [place] [id number] Care Team Providers Care Switchboard Operator Supervisor Name Role Phone Madan Knowles MD Primary Care Provider [phone] [phone] Allergies Active Allergy Reactions Criticality Noted Date Comments Azithromycin Nausea only Low 06/27/2022 Cortisone Other (See comments) Medium 08/05/2025 cortisone Medications insulin NPH (HumuLIN N, NovoLIN N) 100 unit/mL vial for injection daily 7 Active blood glucose diagnostic (OneTouch Verio test strips) stripIndications: Type 1 diabetes mellitus with complication (HCC) Test 2 - 3X daily as needed 200 each 3 1 Active lancets (onetouch ultrasoft) miscIndications:T ype 1 diabetes mellitus with complication (HCC) Use 2 - 3 per day prn 200 each 3 1 Active insulin syringe-needle U-100 (BD Insulin Syringe Ultra-Fine) 0.5 mL 31 gauge x 5/16 syringeIndication s:Type 1 diabetes mellitus without complication 1 each by other route 4 (four) times a day 100 each 1 2 Active spironolactone (ALDACTONE) 100 mg tablet Take 1 tablet (100 mg total) by mouth daily 2 Active famotidine (PEPCID) 40 mg tablet Take 1 tablet (40 mg total) by mouth nightly Active testosterone 100 mg pellet by implant route Active estradioL 15 mg pellet by implant route Active Dexcom G7 Sensor deviceIndications :Type 1 diabetes mellitus without complication,Insu gege pump in place Change every 10 days 9 each 3 5 Active insulin lispro (HumaLOG) 100 unit/mL vial for injectionIndicati ons:Type 1 diabetes mellitus with complication (HCC),Insulin pump in place Inject 55 Units under the skin daily Via pump 50 mL 1 5 05/31/20 26 Active Active Problems Problem Noted Date Diagnosed Date Other chest pain 01/29/2020 Assessment & Plan (01/29/2020 1:52 PM CDT): Woke her up from sleep 4 months ago. Has not had recurrence. No symptoms with exertion except she has low exercise tolerance. She does have increased CV risk due to diabetes, smoking history. She will monitor for further symptoms and let us know. ER precautions given. Intractable migraine without aura 06/10/2018 Other and unspecified chronic thyroiditis 2017 Tobacco use disorder 06/10/2018 Assessment & Plan (01/29/2020 1:30 PM CDT): precontemplative stage. She reports prior attempts which resulted in weight gain due to increased eating. Discussed risks including CV and VTE risk given concurrent use of hormonal therapy. Chronic sinusitis 06/10/2018 Lipid disorder 06/07/2018 Assessment & Plan (01/30/2019 10:03 PM CDT): LDL remains elevated at 129. Not interested in starting lipids at this time. Will recheck Lipid panel today. Counseled to quit smoking to reduce ASCVD risk. Assessment & Plan (09/12/2018 12:21 PM COMPUTER OPERATIONS TECHNICIAN): LDL remains elevated at 129. Current 10 year ASCVD risk based on pooled cohort equation is 2.6%. Assessment & Plan (06/07/2018 11:56 AM CDT): Has had elevated LDL to 110 in the past. At that time, she decided to hold on starting statin and monitor closely. Will recheck lipid panel today. Insulin pump titration 06/07/2018 Assessment & Plan (09/12/2019 6:21 PM COMPUTER OPERATIONS TECHNICIAN): Higher basal during the day, also changed carb ratio to 1:10. Pt is active on Dexcom Clarity, so changes can be followed if necessary. Assessment & Plan (06/07/2018 11:57 AM CDT): Pump downloaded and reviewed. See plan as in type 1 diabetes. Plan for change to tandem pump with dexcom sensor. Type 1 diabetes mellitus without complication Assessment & Plan (01/29/2020 1:27 PM CDT): Diabetes is not controlled, Review of CGM shows pattern of hyperglycemia throughout most of day with largest spikes following lunch. She does find that her BG is dropping during morning and is usually in 70-80s before lunch. Recommend decreasing basal rate in morning and increasing for rest of the day. Would also tighten carb ratio. See changes below. She will continue to use the Dexcom CGM and Tandem pump. Basal MN to 8A 0.6 >0.65 8A to 12P0.6 > 0.55 12P to MN 0.6>0.65 Carb ratio MN to MN 1:12 > 1:10 Sensitivity MN to 8A 50 8A to 10P 45 10P to MN 50 BG target 110-115 mg/dl. IOB 4 hrs. Labs will be done at the next visit. Assessment & Plan (09/12/2019 6:24 PM COMPUTER OPERATIONS TECHNICIAN): Glucose control is pretty good, but could be smoothed out a bit. I have made adjustments to her pump settings, starting daytime higher basal at 0500 until 2200; also changed carb ratio to 1:10 from 1:12. She will continue to use the Dexcom CGM and Tandem pump. Labs will be done at the next visit. Assessment & Plan (01/30/2019 10:01 PM CDT): Diabetes is stable with A1c of 7.5%. She continues to do well with the combination of insulin pump and continuous glucose monitor. She likes the dexcom and t-slim combination. She had 0 % time below target. Using basal IQ with predictive low suspend. Over last 2 weeks delivery was suspended for 11 % of the time to avoid lows. Will obtain Lipid panel, CMP, microalbuminuria. Assessment & Plan (09/12/2018 1:33 PM COMPUTER OPERATIONS TECHNICIAN): Well controlled currently, a1c at 7.2% today. She continues to do well with the combination of insulin pump and continuous glucose monitor Just switched to tandem T-slim X2 pump today with predictive suspend (Basal IQ technology), continue -midnight basal rate lowered to .5u/hr due to lows. ICR at noon increased to 1:10 -continue dexcom G6 Microalbumin/creat negative -eye exam up to date Assessment & Plan (06/07/2018 11:53 AM CDT): Diabetes is stable with A1c of 7.1%. She continues to do well with the combination of insulin pump and continuous glucose monitor. We had a long discussion about replacement pump options as she is now out of warranty. She wishes to continue with the dexcom sensors and we discussed that the tandem pump would communicate with this. We will proceed with the tandem pump. She is due for bloodwork today: cbc, cmp, lipids, microalbumin ordered today. Hyperthyroidism 01/07/2015 Assessment & Plan (01/29/2020 1:28 PM CDT): Clinically euthyroid. TSH normal in 02/2019. Can check labs at next visit Assessment & Plan (09/12/2019 6:22 PM COMPUTER OPERATIONS TECHNICIAN): Recheck thyroid labs at the next visit. TSH has been stable off methimazole. Assessment & Plan (01/30/2019 9:58 PM CDT): She has been off methimazole for > 1 year. Remains clinically euthyroid. Assessment & Plan (09/12/2018 1:31 PM COMPUTER OPERATIONS TECHNICIAN): She has been off methimazole for > 1 year. Clinically she is euthyroid. She does not have a h/o Graves eye disease and sees optho annually. -TFTs in 08/2018 normal. 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 Clinically she is euthyroid. We will recheck thyroid function today and continue to monitor. She does not have a h/o Graves eye disease and sees optho annually. Assessment & Plan (06/07/2018 11:54 AM CDT): She has been off methimazole for > 1 year. Clinically she is euthyroid. We will recheck thyroid function today and continue to monitor. She does not have a h/o Graves eye disease and sees optho annually. 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 Overview (01/27/2018): Description: intermittent Encounters Date Type Department Care Team Description 08/05/2025 8:40 AM CDT Office Visit [facility] Endocrinology Metabolism and Lipid [address] [place] [address] [place] [address] Lamar Hassan MD Type 1 diabetes mellitus with complication (HCC) (Primary Dx) 08/05/2025 7:47 AM CDT - 08/05/2025 11:59 PM CDT Hospital Encounter [facility] - Breast Imaging [address] [facility] [address] [place] [address] Screening mammogram, encounter for Discharge Disposition: Discharge to home or self care from Last 3 Months Surgical History Surgery Date Site/Laterality Comments AK APPENDECTOMY Appendectomy - 1990 (Added by TW Conv) ETHMOIDECTOMY Ethmoidectomy - 1990, sinus scraping 1996 (Added by TW Conv) SINUS SURGERY Sinus Surgery - (Added by TW Conv) AK TOTAL ABDOMINAL HYSTERECT W/WO RMVL TUBE OVARY Hysterectomy - 2007, one ovary left (Added by TW Conv) SECTION 1995, 1998 HYSTERECTOMY 2007 LASIK Medical History Medical History Date Comments Personal history of other di seases of the female genital tract History of endometritis - en dometrial biopsy 10/17, ablation 03/26/05 (Added by TW Conv) Personal history of other di seases of the female genital tract History of menorrhagia - per sistent (Added by TW Conv) Personal history of other di seases of the respiratory system History of pleurisy - 01/19 ( Added by TW Conv) Personal history of other di seases of the respiratory system History of chronic sinusitis - (Added by TW Conv) Migraine with aura and witho ut status migrainosus, not intractable Basilar migraine - manife sted as daily headache with intermittent dizziness; improved with topamax (Added by TW Conv) Noninfective gastroenteritis and colitis Colitis, acute - (Added by TW Conv) Personal history of diseases of skin or subcutaneous tissue History of acne - not severe (Added by TW Conv) Diabetes mellitus age 15 Thyroid disease Family History Medical History Relation Name Comments Asthma Maternal Grandfather Jimmy Sorenson Cancer Maternal Grandmother Jojo Sorenson Arthritis Mother Callie Dominguez Hypertension Other 1 Hypertension - mother (Added by TW Conv) Endometriosis Other 2 Endometriosis - mother (Added by TW Conv) Asthma Other 3 Asthma - matern al grandfather (Added by TW Conv) Lung cancer Other 4 Malignant Neopl asm Bronchus and Lung - maternal grandmother (Added by TW Conv) Relation Name Status Comments Maternal Grandfather Jimmy Sorenson Maternal Grandmother Jojo Sorenson Mother Callie Dominguez Other 1 Other 2 Other 3 Other 4 Social History Tobacco Use Types Packs/Day Years Used Date Smoking Tobacco: Every Day Cigarettes 0.5 35 Smokeless Tobacco: Never Tobacco Cessation:Ready to Q uit: Not Asked; Counseling Given: Not Answered Comments Unknown Sex and Gender Information Value Date Recorded Sex Assigned at Not on file Legal Sex Female 8:31 PM COMPUTER OPERATIONS TECHNICIAN Gender Identity Not on file Sexual Orientation Not on file Obstetrics History Para Term AB IAB SAB Ectopic Multiple Livin g Live Births 2 2 Date Outcome GA Total Labor Labor/2nd/3rd Weight Sex Type Anes PTL Lindsey A1 A5 Name Clin Last Filed Vital Signs Vital Sign Reading Time Taken Comments Blood Pressure 104/70 08/05/2025 8:43 AM CDT Pulse 74 08/05/2025 8:43 AM CDT Temperature 37 C (98.6 F) 08/05/2025 8:43 AM CDT Respiratory Rate - - Oxygen Saturation 98% 11/16/2023 10: 45 AM COMPUTER OPERATIONS TECHNICIAN Inhaled Oxygen Concentration - - Weight 66.1 kg (145 lb 12.8 oz) 08/05/2025 8:43 AM CDT Height 154.9 cm (5' 1) 08/05/2025 8:43 AM CDT Body Mass Index 27.55 08/05/2025 8:43 AM CDT Plan of Treatment Health Maintenance Due Date Last Done Comments Depression Screening 1972 Foot Exam 1972 Hepatitis C Screening 1972 DTaP/Tdap/Td Vaccine (1 - Tdap) 1983 Hepatitis B Screening 1990 Regular Well Visit/Exam 18-64 1990 Pneumococcal vaccine <65 (1 of 2 - PCV) 1991 Zoster Vaccine (1 of 2) 2022 Dilated Eye Exam 10/27/2022 10/27/2021 Colon Cancer Screening-Colonoscopy 05/13/20242013 Influenza Vaccine (#1) 2025 07/15/2019, 2016 Hemoglobin A1C 02/03/2026 08/05/2025, 01/16, 08/06/2024, Additional history exists Albumin Creatinine Ratio, Urine 02/04/2026 02/04/2025, 08/27/2023, 09/08/2022, Additional history exists Lipid Panel 02/04/2026 02/04/2025, 08/17, 01/22/2022, Additional history exists TSH Level 02/04/2026 02/04/2025, 08/17, 09/08/2022, Additional history exists eGFR 02/04/2026 02/04/2025, 08/17, 02/12/2020, Additional history exists Breast Cancer Screening-Mammogram 08/05/2026 025, 07/13/2024 Procedures Procedure Name Priority Date/Time Associated Diagnosis Comments POCT HEMOGLOBIN A1C Routine 08/05/2025 8 :49 AM CDT Type 1 diabetes mellitus with complication (HCC) POCT GLUCOSE 15741 Routine 08/05/2025 8: 47 AM CDT Type 1 diabetes mellitus with complication (HCC) SCREENING MAMMOGRAM BILATERAL W SIDNEY Schedule Routine, Read Routine (OP Routine) 08/05/2025 8:16 AM CDT Screening mammogram, encounter for COMPREHENSIVE METABOLIC PANEL Routine 02/04/2025 10:29 AM CDT Type 1 diabetes mellitus with complication (HCC) LIPID PANEL Routine 02/04/2025 10:29 AM CDT Type 1 diabetes mellitus with complication (HCC) ALBUMIN CREATININE RATIO, URINE Routine 02/04/2025 10:29 AM CDT Type 1 diabetes mellitus with complication (HCC) THYROID FUNCTION CASCADE Routine 02/04/2025 10:29 AM CDT Type 1 diabetes mellitus with complication (HCC) DIABETIC EYE EXAM Routine 10/27/2021 COLONOSCOPY REPORT 05/13/2014 from Last 3 Months or Most Recently Relevant to Health Maintenance Results * (ABNORMAL) POCT hemoglobin A1c (08/05/2025 8:49 AM CDT) Hemoglobin A1C, POC 7.0(A) 4.0 - 5.6 % Blood 08/05/2025 8:49 AM CDT us Lamar Hassan MD POINT OF CARE TEST ORDERABLES Final Result * POCT glucose (08/05/2025 8:47 AM CDT) Glucose Blood, POC 88 Normal Fasting 70 - 100, Random <200 mg/dL Blood 08/05/2025 8:47 AM CDT us Lamar Hassan MD POINT OF CARE TEST ORDERABLES Final Result * Screening Mammogram Bilateral W Sidney (08/05/2025 8:16 AM CDT) Anatomical Region Laterality Modality Breast Bilateral Mammography Impressions 08/06/2025 2:45 PM CDT Bilateral No evidence of malignancy in either breast. OVERALL BI-RADS FINAL ASSESSMENT: 1 - Negative RECOMMENDATION: Recommend bilateral annual screening mammography. Narrative 08/06/2025 2:45 PM CDT EXAMINATION: Screening Mammogram Bilateral W Sidney: 08/05/2025 COMPARISON: Relevant prior studies available at the time of interpretation were reviewed, including the most recent mammogram on: 07/13/2024. TECHNIQUE: Mammography was performed with 2D and 3D digital breast tomosynthesis (DBT) images. CAD was utilized. BREAST PARENCHYMAL COMPOSITION: There are scattered areas of fibroglandular density. FINDINGS: Bilateral There is no suspicious mass, calcification, or architectural distortion in either breast. us Self Screening Mammogram IMG MAMMO PROCEDURES Fi nal Result * Thyroid Function Shanks (02/04/2025 10:29 AM CDT) TSH (Thyrotropin) 0.67 0.27 - 4.20 uIU/mL [facility] Blood 02/04/2025 10:2 9 AM CDT 02/04/2025 11:10 AM CDT Lamar Hassan MD LAB BLOOD ORDERABLES Final Re sult Performing Organization Address [facility] Co de Phone Number [facility] * Albumin Creatinine Ratio, Urine (02/04/2025 10:29 AM CDT) Microalb, Ur <7.0 0.0 - 22.9 mg/L [facility] Comment:Repeated and Verifie d Random Urine Creatinine 23.0 mg/dL [facility] Microalb/Creat Ratio NO CALC 0.0 - 29.9 mg/g [facility] Comment: Urine Microalbumin is below limit of detection. Urine Albumin/Creatinine ratio cannot be calculated. Urine 02/04/2025 10:2 9 AM CDT 02/04/2025 11:10 AM CDT Lamar Hassan MD LAB URINE ORDERABLES Final Re sult Performing Organization Address City/[facility]/ZIP Co de Phone Number [facility] * (ABNORMAL) Lipid panel (02/04/2025 10:29 AM CDT) Triglycerides 63 <150 mg/dL [facility] Comment: Desirable: <150 mg/dL, fasting <175 mg/dL, non-fasting Persistently elevated triglycerides may enhance atherosclerotic cardiovascular disease. Total Cholesterol 206(H) <200 mg/dL [facility] Total HDL-C Direct 61 >50 mg/dL [facility] Non-HDL cholesterol 145 <220 mg/dL [facility] [place] LDL Chol 132 <190 mg/dL [facility] Blood 02/04/2025 10:2 9 AM CDT 02/04/2025 11:10 AM CDT Narrative [facility] - 02/04/2025 12:17 PM CDT Current interpretive data was last updated September 18, 2021. For adults ages 40-79, the ACC/AHA recommends discussing your 10-year atherosclerotic cardiovascular disease risk with your health care provider. [email or web address]://www.acc.org/ASCVDApp us Lamar Hassan MD LAB BLOOD ORDERABLES Final Re sult Performing Organization Address [facility] Co de Phone Number [facility] * (ABNORMAL) Comprehensive metabolic panel (02/04/2025 10:29 AM CDT) Total Protein 7.6 6.1 - 8.4 g/dL [facility] Albumin 4.5 3.5 - 5.2 g/dL [facility] Calcium 10.4(H) 8.6 - 10.3 mg/dL [facility] BUN 13 7 - 23 mg/dL [facility] Total Bilirubin 0.27 0.20 - 1.40 mg/dL [facility] Alk Phos, Total 74 35 - 129 IU/L [facility] AST (SGOT) 18 11 - 47 IU/L [facility] ALT (SGPT) 18 6 - 53 IU/L [facility] Creatinine 0.65 0.60 - 1.10 mg/dL [facility] Sodium 137 135 - 145 mmol/L [facility] Potassium 4.6 3.3 - 5.1 mmol/L [facility] Chloride 98 95 - 107 mmol/L [facility] CO2 Content 29 21 - 29 mmol/L [facility] Glucose 137(H) 64 - 99 mg/dL [facility] Comment: NONFASTING GLUCOSE RANGE = 64-199 mg/dL FASTING GLUCOSE 64 - 99 = NORMAL FASTING GLUCOSE 100 - 125 = IMPAIRED FASTING GLUCOSE FASTING GLUCOSE >=126 = PROVISIONAL DIAGNOSIS OF DIABETES eGFR >90.0 >60.0 mL/min/1.7 3 m2 [facility] Blood 02/04/2025 10:2 9 AM CDT 02/04/2025 11:10 AM CDT Lamar Hassan MD LAB BLOOD ORDERABLES Final Re sult [facility] * Diabetic Eye Exam (10/27/2021) Marvin Vázquez OD HEALTH MAINTENANCE Michelle l Result * COLONOSCOPY REPORT (05/13/2014) Anatomical Region Laterality Modality Other Narrative 05/13/2014 Ordered by an unspecified provider. Historical Provider GI PROCEDURE ORDERABLES F inal Result from Last 3 Months or Most Recently Relevant to Health Maintenance Insurance [facility] [employer] [facility] Aveso CHOICE MD Care Teams Switchboard Operator Supervisor Relationship Specialty Start Date End Date Madan Knowles MD PCP - General 03/01/17
--- OUTSIDE RECORDS SUMMARY | 2025-09-18 08:14 | XMS_ITS | Encounter Summary ---
Author Organization [facility] Address [address] [place] [address] Phone Care Team Providers Care Paper Goods Machine Operator Name Role Phone Madan Knowles MD Primary Care Provider [phone] [phone] Encounter Details Date Type Department Care Team (Latest Contact Info) Description 07/13/2024 Orders Only [facility] Scanning, Provider Social History Tobacco Use Types Packs/Day Years Used Date Smoking Tobacco: Every Day Comments Unknown Sex and Gender Information Value Date Recorded Sex Assigned at Not on file Legal Sex Female 8:31 PM CHAPERONE Gender Identity Not on file Sexual Orientation Not on file documented as of this encounter Plan of Treatment Not on file documented as of this encounter Procedures Procedure Name Priority Date/Time Associated Diagnosis Comments SCAN - LABS 07/13/2024 documented in this encounter Results * SCAN - LABS (07/13/2024) us Provider Scanning Final Result documented in this encounter Visit Diagnoses Not on filedocumented in this encounter Care Teams Paper Goods Machine Operator Relationship Specialty Start Date End Date Madan Knowles MD PCP - General 03/01/17 documented as of this encounter
== END 2025-09-18 08:04 | disposition home or self-care (01) ==
LOC: CHSIMG 08:05
PROVIDERS: PCP Family Medicine; Visit Provider Family Medicine
DX: Z12.2 Encounter for screening for malignant neoplasm of respiratory organs (principal); Z87.891 Personal history of nicotine dependence
CPT/HCPCS: 71271